=== PATIENT | male | born 1970 | race American Indian/Alaskan Native ===

== ENCOUNTER 2017-05-20 22:17 | Emergency (ER) | payer SELFPAY ==
[2017-05-20] MEDS ORDERED: CATAPRES ONE (22:45)
[2017-05-20] MEDS ORDERED: CATAPRES PO ONE (22:57)
[2017-05-20 23:14] LABS: Hemoglobin 13.8 gm/dl (11.8-15.2); Mean Corpuscular HGB Conc 33 % (32-34); Mean Corpuscular Hemoglobin 28 pg (28-32); Mean Corpuscular Volume 84 fl (84-94); Platelet Count 224 K/mm3 (140-440); Red Blood Count 4.98 M/mm3 (3.65-5.03); Red Cell Distribution Width 14.6 % (13.2-15.2); White Blood Count 7.1 K/mm3 (4.5-11.0)
[2017-05-20 23:31] LABS: Anion Gap 17 mmol/L; Blood Urea Nitrogen 15 mg/dL (9-20); Calcium 8.7 mg/dL (8.4-10.2); Carbon Dioxide 22 mmol/L (22-30); Chloride 98.6 mmol/L (98-107); Glucose 160 mg/dL (75-100); Potassium 3.4 mmol/L (3.6-5.0); Sodium 134 mmol/L (137-145)
[2017-05-20 23:49] LABS: Bilirubin,Urine NEG (Negative); Blood,Urine SM (Negative); Ketones,Urine NEG (Negative); Leukocyte Esterase,Urine NEG (Negative); Nitrite,Urine NEG (Negative); Urobilinogen,Urine < 2.0 mg/dL (<2.0); WBC,Urine < 1.0 /HPF (0.0-6.0)
[2017-05-21 03:26] VITALS: BP 145/99
--- NOTE | 2017-05-21 03:31 | Emergency Department Report ---
HPI - General Chief Complaint: High BP Time Seen by Provider: 05/21/17 03:18 - HPI HPI: This is a 47-year-old male presents to the emergency department with complaint of elevated blood pressure. Earlier in the day he felt like his left hand was tingling so he went to a fire department to have his blood pressure checked and found it to be 200/120. He denies any chest pain , headache, slurred speech, vision change or any other neurological deficits or complaints. He did not take anything for his symptoms prior to presentation. He denies any past medical history including any history of hypertension but also admits that he does not see a primary care physician. He is a tobacco smoker. He drinks about one to 2 caffeinated sodas per day. He does not have a healthy diet. No recent travel or sick contacts at home. ED Past Medical Hx - Past Medical History Previous Medical History?: No - Surgical History Past Surgical History?: No - Social History Smoking Status: Current Every Day Smoker Substance Use Type: Alcohol - Medications Home Medications: Home Medications Medication Instructions Recorded Confirmed Last Taken Type amLODIPine [Norvasc] 5 mg PO DAILY #30 tab 05/21/17 Unknown Rx ED Review of Systems ROS: Stated complaint: HIGH BP Other details as noted in HPI Comment: All other systems reviewed and negative Constitutional: denies: chills, fever Eyes: denies: eye pain, eye discharge, vision change ENT: denies: ear pain, throat pain Respiratory: denies: cough, shortness of breath, wheezing Cardiovascular: denies: chest pain, palpitations Gastrointestinal: denies: abdominal pain, nausea, diarrhea Genitourinary: denies: urgency, dysuria Musculoskeletal: denies: back pain, joint swelling, arthralgia Skin: denies: rash, lesions Neurological: denies: headache, weakness Physical Exam - Physical Exam Vital Signs: Vital Signs 05/20/17 05/20/17 05/21/17 22:19 22:58 02:15 Temperature 98.3 F Pulse Rate 95 H 95 H Respiratory 20 Rate Blood Pressure 168/114 168/114 Blood Pressure [Left] O2 Sat by Pulse 99 95 Oximetry 05/21/17 05/21/17 05/21/17 02:19 02:30 02:45 Temperature 98.1 F Pulse Rate 91 H Respiratory 16 Rate Blood Pressure 154/102 147/94 Blood Pressure 162/100 [Left] O2 Sat by Pulse 99 99 96 Oximetry 05/21/17 05/21/17 03:00 03:15 Temperature Pulse Rate Respiratory Rate Blood Pressure 146/94 145/99 Blood Pressure [Left] O2 Sat by Pulse 98 97 Oximetry Physical Exam: GENERAL: The patient is well-developed well-nourished. HENT: Normocephalic. Atraumatic. Patient has moist mucous membranes. EYES: Extraocular motions are intact. Pupils equal reactive to light bilaterally. NECK: Supple. Trachea is midline. CHEST/LUNGS: Clear to auscultation. There is no respiratory distress noted. HEART/CARDIOVASCULAR: Regular. There is no tachycardia. There is no gallop rub or murmur. ABDOMEN: Abdomen is soft, nontender. Patient has normal bowel sounds. There is no abdominal distention. SKIN: Skin is warm and dry. NEURO: The patient is awake, alert, and oriented. The patient is cooperative. The patient has no focal neurologic deficits. The patient has normal speech. MUSCULOSKELETAL: There is no tenderness or deformity. There is no limitation range of motion. There is no evidence of acute injury. ED Course Vital Signs 05/20/17 05/20/17 05/21/17 22:19 22:58 02:15 Temperature 98.3 F Pulse Rate 95 H 95 H Respiratory 20 Rate Blood Pressure 168/114 168/114 Blood Pressure [Left] O2 Sat by Pulse 99 95 Oximetry 05/21/17 05/21/17 05/21/17 02:19 02:30 02:45 Temperature 98.1 F Pulse Rate 91 H Respiratory 16 Rate Blood Pressure 154/102 147/94 Blood Pressure 162/100 [Left] O2 Sat by Pulse 99 99 96 Oximetry 05/21/17 05/21/17 03:00 03:15 Temperature Pulse Rate Respiratory Rate Blood Pressure 146/94 145/99 Blood Pressure [Left] O2 Sat by Pulse 98 97 Oximetry ED Medical Decision Making - Lab Data Result diagrams: 05/20/17 22:36 05/20/17 22:36 - EKG Data -: EKG Interpreted by Dc EKG shows normal: sinus rhythm, axis, intervals, QRS complexes (LVH), ST-T waves (early repolarization) Rate: normal - EKG Data When compared to previous EKG there are: previous EKG unavailable Interpretation: LVH - Medical Decision Making 47-year-old male presents with some elevated blood pressure. The paresthesia that brought him to the fire department has since resolved. He came in with elevated blood pressure but not as high as prior to presentation. He was given a low dose of Catapres and evaluated over multiple hours and his blood pressure has come down to a much more reasonable level. He has no chest pain, shortness of breath or any signs of distress. His labs are mostly unremarkable. I discussed with him some dietary and lifestyle changes to make that will help with his hypertension but he will be started on a medium dose of Norvasc. He will keep a blood pressure log. He will be given multiple referrals for primary care. He will return to the ER with any worsening of his symptoms or any acute distress. Critical Care Time: No Critical care attestation.: If time is entered above; I have spent that time in minutes in the direct care of this critically ill patient, excluding procedure time. ED Disposition Clinical Impression: Hypertension Qualifiers: Hypertension type: essential hypertension Qualified Code(s): I10 - Essential ( primary) hypertension Disposition: TO HOME OR SELFCARE Is pt being admited?: No Condition: Stable Instructions: Hypertension (ED) Additional Instructions: Please try and quit smoking. Stay away from foods that are high in salt and caffeinated products. Keep a blood pressure log. Return to the emergency Department with any worsening of your symptoms or any acute distress. I have started you on a course of a pressure medication called Norvasc/ amlodipine that is to be taken once per day, usually in the morning. Prescriptions: amLODIPine [Norvasc] 5 mg PO DAILY #30 tab Referrals: YUVAL APODACA MD [Primary Care Provider] - 3-5 Days VANESSA PALACIOS MD [Staff Physician] - 3-5 Days GAEL WOODARD MD [Staff Physician] - 3-5 Days [facility] [Outside] - 3-5 Days Time of Disposition: 03:32
== END 2017-05-21 03:40 | disposition home or self-care (01) ==
LOC: ED 22:17
DX: I10 Essential (primary) hypertension (principal); F17.210 Nicotine dependence, cigarettes, uncomplicated
CPT/HCPCS: 36415; 80048; 81001; 85027; 93005; 93010; 99283